=== PATIENT | female | born 1945 | race African-American/Black ===

== ENCOUNTER 2020-12-29 16:33 | Observation (INO) ==
[2020-12-29] MEDS ORDERED: ASPIRIN CHEW 81 MG TABLET PO STA (17:05)
[2020-12-29] MEDS ORDERED: NITROGLYCERIN SL 0.4 MG TABLET SL STA (17:05)
[2020-12-29 17:06] LABS: Basophils % 0.5 % (0.0-0.8); Eosinophils # 0.2 10*3/uL (0.0-0.87); Eosinophils % 2.6 % (0.00-10.9); Hematocrit 34.6 VOL% (35.7-47.0); Hemoglobin 10.8 GM/DL (12.0-16.0); Immature Granulocytes % 0.4 %; Immature Granulocytes Absolute 0.03 #; Lymphocytes % 23.8 % (21.3-54.2); Mean Corpuscular HGB Conc 31.2 GM/DL (32-36); Mean Corpuscular Volume 89.4 FL (87-102); Monocytes % 11.1 % (1.7-12.7); Neutrophils % 61.6 % (38.7-73.9); Platelet Count 250 T/CUMM (130-400); Red Blood Count 3.87 MC/CUMM (3.8-5.5); Red Cell Distribution Width 13.5 % (9.3-17.3); White Blood Count 8.4 T/CUMM (4-12)
[2020-12-29 17:17] LABS: PT Patient Result 11.4 SECS (10.5-12.0); Partial Thromboplastin Time 27.8 SECS (23.9-33.8)
[2020-12-29 17:29] LABS: Albumin 3.8 G/DL (3.4-5.0); Bilirubin,Total 0.5 MG/DL (0.2-1.0); Osmolality,Calculated 290.3 MOS/KG (273-304)
[2020-12-29] MEDS ORDERED: DEXTROSE 50% 25 GM/50 ML VIAL IV PRN (18:24)
[2020-12-29] MEDS ORDERED: GLUCAGON 1 MG VIAL IM PRN (18:24)
[2020-12-29] MEDS ORDERED: ZALEPLON 5 MG CAPSULE PO PRN (18:24)
[2020-12-29] MEDS ORDERED: ENOXAPARIN 30 MG/0.3 ML SYRINGE SUBCUT SCH (18:30)
[2020-12-29] MEDS: SODIUM CHLORIDE 0.45% 1,000 ML IV SCH (19:26)
[2020-12-29 20:08] LABS: Risk Ratio 3.2; Thyroid Stimulating Hormone 0.309 uIU/ml (0.358-3.74); VLDL CHOLESTEROL 21.4 MG/DL
[2020-12-30] MEDS ORDERED: ONDANSETRON 4 MG/2 ML VIAL IV PRN (00:30)
[2020-12-30] MEDS ORDERED: MORPHINE 4 MG/1 ML VIAL IV PRN (00:30)
[2020-12-30] MEDS ORDERED: ACETAMINOPHEN 325 MG TABLET PO PRN (00:32)
[2020-12-30] MEDS: SODIUM CHLORIDE 0.45% 1,000 ML IV SCH ×2 (03:46→12:33)
[2020-12-30 04:53] LABS: Basophils % 0.4 % (0.0-0.8); Eosinophils # 0.3 10*3/uL (0.0-0.87); Eosinophils % 3.6 % (0.00-10.9); Hematocrit 30.9 VOL% (35.7-47.0); Hemoglobin 9.6 GM/DL (12.0-16.0); Immature Granulocytes % 0.2 %; Immature Granulocytes Absolute 0.02 #; Lymphocytes # 2.3 10*3/uL (1.4-4.0); Lymphocytes % 27.9 % (21.3-54.2); Mean Corpuscular HGB Conc 31.1 GM/DL (32-36); Mean Corpuscular Volume 90.6 FL (87-102); Mean Platelet Volume 8.6 FL (9.6-12.0); Monocytes % 11.3 % (1.7-12.7); Neutrophils % 56.6 % (38.7-73.9); Platelet Count 213 T/CUMM (130-400); Red Blood Count 3.41 MC/CUMM (3.8-5.5); Red Cell Distribution Width 13.5 % (9.3-17.3); White Blood Count 8.1 T/CUMM (4-12)
[2020-12-30 05:12] LABS: Bilirubin,Total 0.4 MG/DL (0.2-1.0); Calcium 8.7 MG/DL (8.5-10.1); Total Protein 6.5 G/DL (6.4-8.2)
[2020-12-30] MEDS ORDERED: ASPIRIN CHEW 81 MG TABLET PO SCH (09:00)
[2020-12-30] MEDS ORDERED: carvediloL 3.125 MG TABLET PO SCH (09:00)
[2020-12-30] MEDS ORDERED: PANTOPRAZOLE 40 MG TABLET PO SCH (09:00)
[2020-12-30 12:36] VITALS: BP 160/74
[2020-12-30] MEDS ORDERED: ENOXAPARIN 40 MG/0.4 ML SYRINGE SUBCUT SCH (18:30)
== END 2020-12-30 15:26 | disposition home or self-care (01) ==
LOC: N.EDINP 16:33 → N.ED 16:33 → N.TELES 21:00
PROVIDERS: ADMIT Internal Medicine; ATTEND Internal Medicine